=== PATIENT | male | born 1960 | race Caucasian/White ===

== ENCOUNTER 2019-12-03 10:30 | Outpatient (RCR) | payer OTHER, MEDICAID, SELFPAY ==
--- NOTE | 2019-11-14 14:14 | ST.OPIE ---
Visit Care Team Role Provider Type Daniel Rodriguez MD Family Provider Non-Staff Primary Care Provider Specialty: Family Practice Address: [address] [place], [address] Email: Shaan Daly MD Attending Provider Physician Referring Provider Specialty: Ear, Nose, Throat Address: [address] [place] [address], [id number] Email: [email or web address] Speech-Language Pathology Initial Evaluation PLANNING SPECIALIST Clinical Swallow Evaluation Start: 11/11/19 09:26 Freq: Status: Active Protocol: Document 11/11/19 09:33 VIC (Rec: 11/11/19 09:42 VIC [email or web address]) Clinical Swallow Evaluation Session Time Visit Start Date 11/11/19 Visit Start Time 09:30 Visit Stop Date 11/11/19 Visit Stop Time 10:20 Total Visit Minutes 50 Visit Information Visit Number Initial Evaluation Plan of Care Dates 11/11/19 - 02/10/20 Insurance Information [employer] Referral Referring Provider Dr. Shaan Daly Reason for Referral Dysphagia Setting Assessment Location Outpatient Care Visit Type Note Type Initial evaluation Next Note Type Next Note Type Treatment Note Patient Information Identification Type Name,ID Card History Pt is a 59-yr-old male who experienced a CVA around June 15. MRI was not administered; therefore location of CVA unknown, per pt report. Modified Barium Swallow Study was administered at [facility]. Per pt report, findings included reduced epiglottic inversion ( horizontal at best) with collection of bolus at vallecula. Pt recently had a choking episode on a [employer] resulting in visit to ED. While waiting for imaging, throat cleared of residue and imaging was clear. The pt reported right side facial droop, occasional difficulty talking (rubbery lips) and incorrect word usage; stated he needs to think about what he's saying more than usual. Pt has had numbness in right arm and hand the last few days and had not yet informed his PCP, as he's waiting to see if it clears up. He has hx of carpal tunnel disease. Subjective Observations The pt arrived on time and provided case history supplemental to medical records. Reported by Patient Other Symptoms Choking,Coughing,Difficulty swallowing solids,Food gets stuck Comment Pt is edentulous and, therefore, mostly consumes soft diet. Current Diet Dysphagia advanced,Chopped Baseline Feeding Method Independent in self-feeding Patient Questionnaire No Objective Assessment Mental Status Alert,Responsive,Cooperative Oral Integrity WFL Dentition Missing teeth Lip Function Within normal limits Observation of Lips at Rest Right sided weakness/Drooping Pucker Reduced range of motion Lip Retraction Within normal limits Alternating Pucker/Lip Retraction Within normal limits Tongue Function Mild impairment Observations of Tongue at Rest Within normal limits Tongue Protrusion Within normal limits Tongue Lateralization Reduced strength Jaw Function Within normal limits Observations of Jaw at Rest Within normal limits Jaw Opening Within normal limits Jaw Closing Within normal limits Jaw Lateralization Within normal limits Hard/Soft Palate Function Within normal limits Observations of Hard/Soft Palate Within normal limits Nasality Within normal limits Phonation Within normal limits Respiratory Sufficiency Within normal limits Comment Right facial droop is minimal. Speech intelligibility was 100%; no evidence of dysarthria. Food and Liquid Trials Position During Assessment Upright (90 degrees) Liquids Trialed Thin Solids Trialed Mechanical Soft,Regular Administration Type Tea spoon,Cup single sip,Cup consecutive sips,Self-feeding Oral Impairment Mildly impaired Oral Phase Comments Pt is edentulous with exception of one upper front tooth and one right side molar , which is to be removed soon, and bottom front teeth. The pt recently lost upper molars and does not have immediate plans for dentures or other dental prosthetics. He stated he finds it difficult to masticate and feels that reduced mastication contributed to recent choking episode that sent him to the ED. Pharyngeal Impairment Moderately impaired Pharyngeal Phase Comments The pt exhibited a single cough after intake of oral trials, not apparently related to intake. No overt s/sx of aspiration was observed during trials. However, based on MBS results, recent choking event (s), and in light of recent CVA, pharyngeal impairment is estimated to be mildly to moderately severe. Fatigue/Endurance Endurance WNL Strategies Attempted Effortful swallow Findings Swallowing Function Oropharyngeal phase dysphagia Severity of Swallow Impairment Mildly-moderately impaired Contributing Factors to Swallow Mastication inefficiency, Impairment Reduced laryngeal excursion, Impaired airway protection, Excessive pharyngeal residue Comments Impaired epiglottic inversion Prognosis Good Based on Cognitive status,Age Comment Skilled intervention is medically necessary to improve swallow function and safety to reduce risk of aspiration. Education was provided to the pt RE normal vs abnormal swallow function, particularly around impairment of airway closure and epiglottic inversion. The pt verbalized understanding and was trained on exercises to increase laryngeal and lingual strength and coordination to improve airway closure, epiglottic inversion, and pharyngeal clearance. He returned demonstration and verbalized understanding. Instructions for exercises were provided orally with demonstration and in writing for home practice. All questions were answered. Impact on Safety and Functioning Risk for aspiration Recommendations Instrumental Assessment No Swallowing Treatment Yes Frequency Up to 5 treatments over 12 weeks Recommended Solids Mechanical Soft Recommended Liquids Thin Other Recommendations Discuss recent right hand numbness with MD. Pt agrees. Safety Precautions/Swallowing Reduce distractions,Remain Recommendations upright (90 degrees) during all oral intake,Upright position at least 30 minutes after meals,Small bites and sips when eating,Slow rate; swallow between bites Medication Recommendations As Tolerated Discharge Recommendations Home,Outpatient therapy Education Patient/Caregiver Education Described results of evaluation,Patient expressed understanding of evaluation, Patient expressed agreement with goals & treatment plans Goals Short-term Goals 1. The pt will complete swallow exercises independently to reduce risk of aspiration. 2. The pt will follow safe swallow precautions independently to reduce risk of aspiration. Long-term Goals 1. The pt will demonstrate compliance with HEP to promote long-term swallow safety. 2. The pt will tolerate least restrictive diet to meet his nutrition and hydration needs.
--- NOTE | 2019-11-20 12:36 | ST.IPDYTX ---
Visit Care Team Role Provider Type Dnaiel Rodriguez MD Family Provider Non-Staff Primary Care Provider Specialty: Family Practice Address: [address] [place], [address] Email: Shaan Daly MD Attending Provider Physician Referring Provider Specialty: Ear, Nose, Throat Address: [address] [place] [address], [id number] Email: [email or web address] EDITOR SOUND Dysphagia Treatment EDITOR SOUND Dysphagia Treatment Start: 11/11/19 09:26 Freq: Status: Active Protocol: Document 11/20/19 12:25 VIC (Rec: 11/20/19 12:34 VIC [email or web address]) Dysphagia Treatment Session Time Visit Start Time 10:35 Visit Stop Time 11:05 Total Visit Minutes 30 Visit Information Visit Number 02/24 Setting Assessment Location Outpatient Care Visit Type Note Type Treatment Note Next Note Type Next Note Type Treatment Note Patient Information Identification Type Name,ID Card Subjective Observations The pt arrived on time. Reported having lost the HEP list and instructions but completed base of tongue and effortful swallow exercises from memory. Continues to have difficulty with dry foods sticking and causing him to cough; better with soft, moist foods. He saw the dentist earlier in the week for upper right molar extraction but was unable to have completed d/t blood pressure being too high to administer Novocaine. Treatment Treatment Activities Continued training of swallow exercises. Given oral and written instructions with demonstration as needed, the pt completed all prescribed exercises targeting hyolaryngeal elevation and excursion to promote airway closure, epiglottic inversion, and pharyngeal clearance. All questions were answered. Discussed POC with pt with recommendation for f/u in 1 week and anticipated decrease in frequency after that. Pt was in agreement. Assessment Patient Response to Treatment Good Rehab Potential Good Assessment of Improvement The pt demonstrated excellent ability to perform prescribed swallow exercises. No significant improvement in swallow ability perceived by pt, as a result of minimal exercise completed since last visit. Will f/u again in 1 wk. Diet Recommendations Recommendations Continue Current Diet Liquids Order Thin Diet Order Mechanical Soft Medication Recommendations As Tolerated Additional Dietary Needs Reminders to Use Strategies Aspiration Precautions Recommended Precautions Upright at 90 Degrees,Small Bites/Sips,Effortful Swallow, Double Swallow Treatment Plan Placement Recommendation after Discharge Home,Outpatient Therapy Appropriate for Continued Therapy Yes Dysphagia Goals 1. The pt will complete swallow exercises independently to reduce risk of aspiration. 2. The pt will follow safe swallow precautions independently to reduce risk of aspiration. 3. The pt will demonstrate compliance with HEP to promote long-term swallow safety. 4. The pt will tolerate least restrictive diet to meet his nutrition and hydration needs.
--- NOTE | 2019-12-03 11:43 | ST.IPDYTX ---
Visit Care Team Role Provider Type Daniel Rodriguez MD Family Provider Non-Staff Primary Care Provider Specialty: Family Practice Address: [address] [place], [address] Email: Shaan Daly MD Attending Provider Physician Referring Provider Specialty: Ear, Nose, Throat Address: [address] [place] [address], [address] Email: [email or web address] INSULATION WORKER Dysphagia Treatment INSULATION WORKER Dysphagia Treatment Start: 11/11/19 09:26 Freq: Status: Active Protocol: Document 12/03/19 11:34 VIC (Rec: 12/03/19 11:43 VIC [email or web address]) Dysphagia Treatment Session Time Visit Start Time 10:30 Visit Stop Time 11:05 Total Visit Minutes 35 Visit Information Visit Number 2/ Plan of Care Dates 11/11/19 - 02/10/20 Setting Assessment Location Outpatient Care Visit Type Note Type Treatment Note Next Note Type Next Note Type Treatment Note Patient Information Identification Type Name,ID Card Subjective Observations The pt arrived on time and reported completing HEP tasks at least once a day. He has noted some improvement in swallowing but continues to sense collection of food particles above epiglottis and occasional entry into airway. Typically the latter is grainy or dry, crumble food textures. Treatment Liquids Trialed Thin Administration Type Self-Feeding Oral Strategies Upright at 90 degrees Pharyngeal Strategies Sitting Upright (90 deg), Double Swallow,Effortful Swallow,Small Bites and Sips Treatment Activities Trained pt in Niki maneuver to increase strengthening of hyolaryngeal musculature and subsequent epiglottic inversion and promote pharyngeal clearance and airway protection. The pt initially had difficulty performing task but did improve over course of tx. Instructions were provided orally with demonstration and in writing. The pt has demonstrated excellent understanding of and ability to perform all other prescribed exercises. Skilled feedback and education was provided RE recommendation to increase repetitions of exercises daily, as well as aspiration precautions, safe swallow strategies and POC. Pt verbalized understanding. Assessment Patient Response to Treatment Good Rehab Potential Good Assessment of Improvement After initial difficulty performing Niki maneuver , the pt improved ability to perform. He demonstrates excellent understanding of and ability to perform all other exercises, although per his report, he has not completed HEP tasks at the prescribed dosage. He did state intention to increase repetitions of exercises. Recommended follow- up in 3 wks, and pt agreed. Diet Recommendations Recommendations Continue Current Diet Liquids Order Thin Diet Order Mechanical Soft Medication Recommendations As Tolerated Additional Dietary Needs Reminders to Use Strategies Aspiration Precautions Recommended Precautions Upright at 90 Degrees,Small Bites/Sips,Effortful Swallow, Double Swallow,Niki Maneuvor Treatment Plan Placement Recommendation after Discharge Home,Outpatient Therapy Appropriate for Continued Therapy Yes Dysphagia Goals 1. The pt will complete swallow exercises independently to reduce risk of aspiration. 2. The pt will follow safe swallow precautions independently to reduce risk of aspiration. 3. The pt will demonstrate compliance with HEP to promote long-term swallow safety. 4. The pt will tolerate least restrictive diet to meet his nutrition and hydration needs.
--- NOTE | 2020-04-06 15:14 | ST.IPDYTX ---
Visit Care Team Role Provider Type Daniel Rodriguez MD Family Provider Non-Staff Primary Care Provider Specialty: Family Practice Address: [address] [place], [address] Email: Shaan Daly MD Attending Provider Physician Referring Provider Specialty: Ear, Nose, Throat Address: [address] [place] [address], [id number] Email: [email or web address] COOK MORNING Dysphagia Treatment COOK MORNING Dysphagia Treatment Start: 11/11/19 09:26 Freq: Status: Active Protocol: Document 04/06/20 15:12 VIC (Rec: 04/06/20 15:14 VIC [email or web address]) Dysphagia Treatment Visit Information Plan of Care Dates 11/11/19 - 02/10/20 Insurance Information [employer] Setting Assessment Location Outpatient Care Visit Type Note Type Discharge Summary Patient Information Subjective Observations The pt was last seen for therapy 12/03/19 and has been inactive since. He is discharged from therapy at this time. Treatment Plan Appropriate for Continued Therapy No: Discharge from services Dysphagia Goals 1. The pt will complete swallow exercises independently to reduce risk of aspiration. 2. The pt will follow safe swallow precautions independently to reduce risk of aspiration. 3. The pt will demonstrate compliance with HEP to promote long-term swallow safety. 4. The pt will tolerate least restrictive diet to meet his nutrition and hydration needs.
== END 2020-04-08 07:43 ==
LOC: SP 10:30
PROVIDERS: Family Provider Family Medicine; PCP Family Medicine; Referring Provider Otolaryngology; Visit Provider Otolaryngology
DX: I69.391 Dysphagia following cerebral infarction (principal)
CPT/HCPCS: 92526; 92610